=== PATIENT | male | born 1955 | race Caucasian/White ===

== ENCOUNTER → 2016-11-17 | Outpatient (CLI) | payer BC ==
--- NOTE | ~2016-11-17 | EXE ---
[facility] [place] [address] STRESS ECHOCARDIOGRAM Name: LE CEDENO Room #: [facility]#: [id number] Admission: 11/17/16 Attend Phys: Narendra Hdz MD Discharge: Date of : 53 Date of Service: 11/17/16 1459 Report #: [id number] THIS REPORT FOR: //name// APPROVED REPORT Exam: Stress Echocardiogram Reason for Exam: Chest pain , Dyspnea Patient Location: Out-Patient Stress Nurse: Ama Terrell RN HR: 63 bpm Medical History Medical History: HTN, Hyperlipidemia Allergies: Benicar Procedure The patient underwent an Exercise Stress Test using the Gabriele Protocol. Blood pressure, heart rate, and EKG were monitored. An Echocardiogram was performed by histology technician in four stages in quad fashion. At peak stress, four selected images were obtained and placed side by side with resting images for comparison. Testing Details Test: Exercise stress testing was performed using a Gabriele protocol. HR Resting HR: 63 bpm Max Heart Rate (APMHR): 158 bpm Max HR Achieved: 164 bpm Target HR (85% APMHR): 134 bpm % of APMHR: 103 Recovery HR: 85 bpm HR response to stress: Normal HR response to stress BP Resting BP: 159/90 mmHg Max BP: 192/90 mmHg Recovery BP: 161/98 mmHg ECG Resting ECG: Sinus Rhythm, nonspecific ST-T abnormalities Stress ECG: Sinus Rhythm, nonspecific ST-T abnormalities ST Change: Eqivocal Clinical Reason for Termination: Dyspnea [facility] [address] [place] [address] STRESS ECHOCARDIOGRAM Name: LE CEDENO Room #: [facility]#: [id number] Admission: 11/17/16 Attend Phys: Narendra Hdz MD Discharge: Date of : 53 Date of Service: 11/17/16 1459 Report #: [id number] Stress Symptoms: Dyspnea Exercise duration: 8mins 30sec min Exercise capacity: 10.4 METs Pre-Stress Echo The resting Echocardiogram showed normal left ventricular contractility with an estimated Ejection Fraction of about 55-60%. Post-Stress Echo The stress Echocardiogram showed normal left ventricular contractility with an estimated Ejection Fraction of about 65%. The stress Echocardiogram demonstrated wall motion abnormality in the septal . Conclusion Clinical Response: Non-ischemic Stress ECG Response: Equivocal Stress Echo Images: Ischemic Ischemia noted in septum at peak exercise, unable to R/O ischemia in anterior wall. Other Information Study Quality: Adequate <Conclusion> Ischemia noted in septum at peak exercise, unable to R/O ischemia in anterior wall. <ELECTRONICALLY SIGNED> By: Narendra Hdz MD 11/17/16 1459 1459 1459 Narendra Hdz MD /INF
== END ==
LOC: CV 09:16
DX: R06.00 Dyspnea, unspecified (principal); R07.9 Chest pain, unspecified; I10 Essential (primary) hypertension; E78.5 Hyperlipidemia, unspecified

== ENCOUNTER → 2016-12-16 | Outpatient (CLI) | payer BC | LOC: NUC 07:42 | DX: R07.9 Chest pain, unspecified (principal) ==

== ENCOUNTER 2018-07-06 06:34 | Outpatient (CLI) | payer BC ==
[~2018-07-06] VITALS: Ht 177.8 cm; Wt 103.9 kg
--- NOTE | ~2018-07-06 | CATHLAB ---
[facility] [place] [address] INVASIVE PROCEDURE REPORT Name: LE CEDENO Room #: 211-P [facility]#: [id number] Admission: 07/06/18 Attend Phys: Narendra Hdz MD Discharge: Date of : 53 Date of Service: 07/06/18 1044 Report #: [id number] THIS REPORT FOR: //name// APPROVED REPORT Study performed: 07/06/2018 07:20:35 Patient Details Patient Status: Out-Patient Room #: The patient is a 62 year-old male Event Personnel Narendra Hdz Field Captain, Jose Jacobo RN, Vicky Branch RTR, SHALINI Osullivan, Rylan Rivera Monitor Procedures Performed Left Heart Cath w/or w/o Coronaries [id number] [facility] [address] w/wo Plasty Single CIRC [id number] Indication Dyspnea, Unstable angina , Chest pain Risk Factors Hypercholesterolemia, Coronary Artery DiseaseHypertensionRenal Failure Procedure Narrative The Right Groin^ was infiltrated with 1% Lidocaine subcutaneous anesthesia. A PINNACLE 4FR Sheath #[id number] sheath was inserted into the RFA^. Coronary angiography was performed using coronary diagnostic catheters. The right coronary system was accessed and visualized with a JR4 catheter. The left coronary system was accessed and visualized with a JL4 catheter. The left ventricle was accessed and visualized with a PIGTAIL catheter. Left ventricular/Aortic Valve gradient assessed via catheter pullback. Closure device was deployed with a 6 Fr MYNXGRIP 6/7F #[id number]. The patient tolerated the procedure well and there were no complications associated with the procedure. There was no hematoma. Intraoperative Conscious Sedation Sedation start time: 8.27 Case end Time: 9.22 Fentanyl 50 mcg Versed 2 mg Fluoro Time: 7.22 minutes [facility] [place] [address] INVASIVE PROCEDURE REPORT Name: LE CEDENO [facility] Room #: 211-[facility].#: [id number] Admission: 07/06/18 Attend Phys: Narendra Hdz MD Discharge: Date of : 53 Date of Service: 07/06/18 1044 Report #: [id number] Dose: DAP 9501 cGycm2 1241 mGy Contrast Type and Amount: Visipaque 125 ml Coronary Angiography The patient's coronary anatomy is co- dominant. Diagnostic Cath Left Main This is a patent vessel, with no flow-limiting lesions. LAD This is a moderate size caliber vessel, tortuous as it traverses the anterior wall and wraps around the apex. There is mild disease in the proximal segment, 20%. Within the mid segment, there is mild to moderate stenosis, 40%. Diagonal 1 This is a moderate size caliber vessel, with no flow-limiting lesions. Circumflex This is a codominant vessel, with a severe stenosis in the mid segment, 70%. OM1 This is a small-caliber vessel, with no flow-limiting lesions. OM2 This is a moderate size caliber vessel, extends out to the inferolateral wall. There is a moderate stenosis in the proximal segment, 50%. Right Coronary This is a moderate size caliber vessel, with mild disease in the mid segment, 20%. R PDA This is a patent vessel, with no flow-limiting lesions. Left Ventriculography Left Ventriculography was not performed. Ejection Fraction was >55% based off patient's Echocardiogram. An LVEDP was checked and there is no gradient across the outflow tract. Hemodynamics The aortic pressure is 148/83 mmHg with a mean of 110 mmHg. The left ventricular pressure is 146/18 mmHg with a mean of mmHg. The left ventricular end diastolic pressure is 25 mmHg. There was no gradient across the aortic valve upon pullback. Pullback from the left ventricle to the aorta revealed no gradient across the aortic valve. PCI Technique Lesion Percutaneous coronary intervention was performed on the mid circumflex artery segment. The lesion stenosis prior to intervention was 70% with FÉLIX 3 flow. A VISTA 6FR JL4 #[id number] Guide Catheter was used to engage the ostium. A Luge Wire .014 x 182CM #[id number] Interventional Guidewire was used to cross the lesion. [facility] [address] [place] [address] INVASIVE PROCEDURE REPORT Name: LE CEDENO Room #: 211-P [facility] [address] M.R.#: [id number] Admission: 07/06/18 Attend Phys: Narendra Hdz MD Discharge: Date of : 53 Date of Service: 07/06/18 1044 Report #: [id number] BALLOON DILATION A Balloon catheter MOZEC NC RX 2.50 X 08 #[id number] was inserted and inflated up to 12.00atm for 20seconds. STENT DEPLOYMENT A drug-eluting stent 3.0mm x 12mm EluNir RX was inserted and inflated up to 16.00atm for 30seconds. POST STENT DEPLOYMENT BALLOON DILATION A Balloon catheter Euphora NC RX 3.25 x 8 #[id number] was inserted and inflated up to 18.00atm for 21seconds. Final angiography reveals 0 % stenosis with FÉLIX 3 flow. Conclusion 1. Successful insertion of a drug-eluting stent into the mid LCx segment. 2. Mild to moderate disease in the LAD, OM 2 and RCA. 3. Codominant system. 4. Recommend dual antiplatelet therapy and risk factor management. <ELECTRONICALLY SIGNED> By: Narendra Hdz MD 07/06/18 1044 1044 1044 Narendra Hdz MD /INF
--- NOTE | ~2018-07-06 | D ---
[facility] [place] [address] DISCHARGE SUMMARY Name: LE CEDENO [facility]: [id number] Admission: 07/06/18 Attend Phys: Narendra Hdz MD Discharge: Date of : 53 Report #: [id number] THIS REPORT FOR: //name// CC: Narendra Santos Kelvin FINAL DIAGNOSES: 1. Coronary artery disease, status post percutaneous coronary intervention. 2. Hypertension. 3. Hypercholesterolemia. 4. Edema. 5. Renal insufficiency. HOSPITAL COURSE: Please see the original H and P for full details. The patient presented with complaints of chest pain and shortness of breath. Please see the cardiac catheterization report for full details. There was a severe stenosis in the mid segment of the left circumflex artery. Angioplasty was performed with placement of a drug-eluting stent. There is umds-un-kgzchofr disease in the LAD, OM2 and RCA. He remains clinically stable overnight, no episodes of chest pain. He is stable with ambulation, will be discharged home today. He is given strict instructions regarding the importance of compliance with dual antiplatelet therapy. FINAL DISPOSITION: Aspirin 81 mg, Effient 10 mg daily, atorvastatin 20 mg daily, carvedilol 12.5 mg 2 times a day, losartan 25 mg daily, hydrochlorothiazide 25 mg daily. By: 0838 0856 Narendra Hdz MD /riley
--- NOTE | ~2018-07-06 | EKG ---
[address] [place] [address] ELECTROCARDIOGRAM REPORT Name: LE CEDENO Room #: 211-P [facility].#: [id number] Admission: 07/06/18 Attend Phys: Narendra Hdz MD Discharge: Date of : 53 Report #: [id number] THIS REPORT FOR: //name// [facility] Test Date: 2018-07-07 Test Time: 06:46:18 Pat Name: LE CEDENO Department: Room: 211 P Gender: M Camouflage Specialist: REGINALDO : 1955 Requested By: Narendra Hdz Order Number: [id number] MD: Juan Vasquez Measurements Intervals [place] Rate: 55 P: 64 [place]: 175 QRS: 3 QRSD: 107 T: 31 QT: 453 QTc: 434 Interpretive Statements Sinus rhythm Atrial premature complex Abnormal R-wave progression, early transition Nonspecific ST segment abnormality Baseline wander in lead(s) V2 Compared to ECG 07/06/2018 10:08:52 No significant change was found Electronically Signed On 07-07-2018 7:55:41 BALANCING MACHINE OPERATOR by Juan Vasquez [email or web address] <ELECTRONICALLY SIGNED> By: Juan Vasquez MD, [facility] 07/07/18 0755 0646 0646 Juan Vasquez MD, [facility] /EPI
--- NOTE | ~2018-07-06 | EKG ---
[address] [place] [address] ELECTROCARDIOGRAM REPORT Name: LE CEDENO Room #: 211-P [facility]#: [id number] Admission: 07/06/18 Attend Phys: Narendra Hdz MD Discharge: Date of : 53 Report #: [id number] THIS REPORT FOR: //name// [facility] Test Date: 2018-07-06 Test Time: 10:08:52 Pat Name: LE CEDENO Department: Room: Gender: M Acoustical Engineer: GUNNAR : 1955 Requested By: Narendra Hdz Order Number: [id number] MD: Howard Elizabeth Measurements Intervals [place] Rate: 55 P: 66 [place]: 177 QRS: 11 QRSD: 106 T: 35 QT: 475 QTc: 455 Interpretive Statements Sinus rhythm Supraventricular bigeminy Abnormal R-wave progression, early transition No previous ECG available for comparison Electronically Signed On 07-06-2018 15:40:36 MEDICAL RECEPTIONIST BILLER by Howard Elizabeth [email or web address] <ELECTRONICALLY SIGNED> By: Howard Elizabeth MD 07/06/18 1540 1008 07 Howard Elizabeth MD /JONES
[2018-07-06 07:08] LABS: HEMATOCRIT 42.8 % (42.0-52.0); MCH 30.7 pg (26.0-34.0); MCV 87.9 fL (80.0-100.0); RBC 4.87 mil/uL (4.50-6.00); RDW 13.5 % (10.5-14.5); WBC 9.8 thou/uL (4.0-11.0)
[2018-07-06 07:13] LABS: CALCIUM 9.2 mg/dL (8.5-10.1); CREATININE 1.6 mg/dL (0.7-1.3); POTASSIUM 4.1 mmol/L (3.5-5.1)
[2018-07-06 07:26] VITALS: BP 151/79
[2018-07-06] MEDS ORDERED: LIPITOR 20 MG T20 M1 PO (07:31)
[2018-07-06] MEDS ORDERED: PROZAC20 MG PO (07:31)
[2018-07-06] MEDS ORDERED: HYDROCHLOROTHIA25 M2 PO (07:31)
[2018-07-06] MEDS ORDERED: COZAAR 25 MG TA25 M2 PO (07:32)
[2018-07-06] MEDS ORDERED: CARVEDILOL12.5 MG PO (07:32)
[2018-07-06] MEDS ORDERED: CLARITIN5 MG PO (07:33)
[2018-07-06] MEDS ORDERED: CENTRUM SILVER1 EAC4 PO (07:33)
[2018-07-06] MEDS ORDERED: FISH OIL 1,001000 M2 PO (07:34)
[2018-07-06] MEDS ORDERED: VITAMINC500 PO (07:34)
[2018-07-06] MEDS ORDERED: ASPIR 8181 MG PO (07:34)
[2018-07-06 12:00] VITALS: BP 157/89
[2018-07-06 15:12] VITALS: BP 149/95
[2018-07-06 20:30] VITALS: BP 155/76
[2018-07-07 00:45] VITALS: BP 138/67
[2018-07-07 04:30] VITALS: BP 137/73
[2018-07-07 04:33] LABS: HEMATOCRIT 39.9 % (42.0-52.0); HEMOGLOBIN 13.8 gm/dL (14.0-18.0); MCH 30.3 pg (26.0-34.0); MCHC 34.5 g/dL (28.0-37.0); MCV 87.8 fL (80.0-100.0); RBC 4.55 mil/uL (4.50-6.00); RDW 13.4 % (10.5-14.5); WBC 9.7 thou/uL (4.0-11.0)
[2018-07-07 04:37] LABS: ALBUMIN 3.2 g/dL (3.4-5.0); ANION GAP 8 mmol/L (7-16); BUN 19 mg/dL (7-18); CALCIUM 8.5 mg/dL (8.5-10.1); CHLORIDE 106 mmol/L (98-107); CO2 27 mmol/L (21-32); CREATININE 1.4 mg/dL (0.7-1.3); GLUCOSE 112 mg/dL (74-106); POTASSIUM 3.8 mmol/L (3.5-5.1); SGOT 17 U/L (15-37); SGPT 21 U/L (30-65); SODIUM 141 mmol/L (136-145); TOTAL BILIRUBIN 0.7 mg/dL (<0.1-1.0); TOTAL PROTEIN 6.4 g/dL (6.4-8.2); TROPONIN-I <0.06 ng/mL (<0.06)
[2018-07-07 07:35] VITALS: BP 154/87
[2018-07-07] MEDS ORDERED: EFFIENT10 MG PO (08:27)
[2018-07-07 08:45] VITALS: BP 137/73
== END 2018-07-07 10:57 | disposition home or self-care (01) ==
LOC: 2N 06:34 → CATH 06:34 → 2N 10:05 → CATH 11:23 → ENTRNSPT 07-07 10:38 → EDTRNSPTSTS 07-07 10:52 → CATH 07-07 10:57
PROVIDERS: Internal Medicine Cardiovascular Disease
DX: I25.110 Atherosclerotic heart disease of native coronary artery with unstable angina pectoris (principal); I10 Essential (primary) hypertension; E78.00 Pure hypercholesterolemia, unspecified; Z90.49 Acquired absence of other specified parts of digestive tract; Z98.890 Other specified postprocedural states; Z88.8 Allergy status to other drugs, medicaments and biological substances; Z79.82 Long term (current) use of aspirin; Z79.899 Other long term (current) drug therapy
CPT/HCPCS: 10081

== ENCOUNTER → 2020-01-17 | Outpatient (CLI) | payer OTHER ==
[~2020-01-17] MED LIST: ASPIR 8181 MG PO; CARVEDILOL12.5 MG PO; CENTRUM SILVER1 EAC4 PO; CLARITIN5 MG PO; COZAAR 25 MG TA25 M2 PO; EFFIENT10 MG PO; FISH OIL 1,001000 M2 PO; HYDROCHLOROTHIA25 M2 PO; LIPITOR 20 MG T20 M1 PO; PROZAC20 MG PO; VITAMINC500 PO
== END ==
LOC: SJCVCIMAG 08:57
PROVIDERS: ATTEND Internal Medicine Cardiovascular Disease
DX: R00.1 Bradycardia, unspecified (principal); I25.10 Atherosclerotic heart disease of native coronary artery without angina pectoris; E78.00 Pure hypercholesterolemia, unspecified; E78.5 Hyperlipidemia, unspecified; I12.9 Hypertensive chronic kidney disease with stage 1 through stage 4 chronic kidney disease, or unspecified chronic kidney disease; N18.9 Chronic kidney disease, unspecified; Z90.49 Acquired absence of other specified parts of digestive tract; Z79.82 Long term (current) use of aspirin; Z79.899 Other long term (current) drug therapy

== ENCOUNTER → 2020-08-06 | Outpatient (CLI) | payer OTHER, MEDICARE | LOC: SJCVC 13:46 | PROVIDERS: ATTEND Internal Medicine Cardiovascular Disease | DX: I25.10 Atherosclerotic heart disease of native coronary artery without angina pectoris (principal); E78.00 Pure hypercholesterolemia, unspecified; R60.9 Edema, unspecified; I12.9 Hypertensive chronic kidney disease with stage 1 through stage 4 chronic kidney disease, or unspecified chronic kidney disease; N18.9 Chronic kidney disease, unspecified; Z95.5 Presence of coronary angioplasty implant and graft; Z79.82 Long term (current) use of aspirin; Z79.899 Other long term (current) drug therapy ==

== ENCOUNTER → 2021-02-04 | Outpatient (CLI) | payer OTHER, MEDICARE | LOC: SJCVCIMAG 09:04 | PROVIDERS: ATTEND Internal Medicine Cardiovascular Disease | DX: I08.1 Rheumatic disorders of both mitral and tricuspid valves (principal); R00.1 Bradycardia, unspecified; I12.9 Hypertensive chronic kidney disease with stage 1 through stage 4 chronic kidney disease, or unspecified chronic kidney disease; N18.9 Chronic kidney disease, unspecified; I25.10 Atherosclerotic heart disease of native coronary artery without angina pectoris; R60.9 Edema, unspecified; E78.00 Pure hypercholesterolemia, unspecified; Z79.82 Long term (current) use of aspirin; Z79.899 Other long term (current) drug therapy; Z72.89 Other problems related to lifestyle; Z88.1 Allergy status to other antibiotic agents ==

== ENCOUNTER → 2021-08-07 | Outpatient (CLI) | payer OTHER, MEDICARE | LOC: SJCVC 11:27 | PROVIDERS: ATTEND Internal Medicine Cardiovascular Disease | DX: R00.1 Bradycardia, unspecified (principal); I25.10 Atherosclerotic heart disease of native coronary artery without angina pectoris; R07.89 Other chest pain; I10 Essential (primary) hypertension; E78.00 Pure hypercholesterolemia, unspecified; R60.9 Edema, unspecified; E78.5 Hyperlipidemia, unspecified; Z72.89 Other problems related to lifestyle; Z79.82 Long term (current) use of aspirin; Z79.899 Other long term (current) drug therapy; Z88.8 Allergy status to other drugs, medicaments and biological substances ==